=== PATIENT | male | born 1945 | race Caucasian/White ===

== ENCOUNTER 2017-09-22 16:07 | Observation (INO) | payer MEDICARE ==
[2017-09-22 18:21] LABS: Basophils % (A) 0 %; Eosinophils # (A) 0.1 k/uL (0-0.7); Eosinophils % (A) 1 %; HCT 43.4 % (39.0-53.0); HGB 14.6 gm/dL (13.0-17.5); Lymphocytes # (A) 1.1 k/uL (1.0-4.8); Lymphocytes % (A) 9 %; MCH 28.7 pg (25.0-35.0); MCHC 33.7 g/dL (31.0-37.0); MCV 85.2 fL (80.0-100.0); Mean Platelet Volume 6.3; Monocytes # (A) 0.6 k/uL (0-1.0); Monocytes % (A) 5 %; Neutrophils # (A) 10.9 k/uL (1.3-7.7); Neutrophils % (A) 85 %; Platelet Count 250 k/uL (150-450); RDW 12.9 % (11.5-15.5); WBC 12.7 k/uL (3.8-10.6)
[2017-09-22 18:29] LABS: ALT 36 U/L (21-72); AST 32 U/L (17-59); Albumin 4.8 g/dL (3.5-5.0); Alkaline Phosphatase 103 U/L (38-126); Amylase 69 U/L (30-110); Anion Gap 12 mmol/L; Blood Urea Nitrogen 17 mg/dL (9-20); Calcium 9.6 mg/dL (8.4-10.2); Carbon Dioxide 24 mmol/L (22-30); Chloride 104 mmol/L (98-107); Glucose 116 mg/dL (74-99); Lipase 30 U/L (23-300); Sodium 140 mmol/L (137-145); Total Bilirubin 1.6 mg/dL (0.2-1.3); Total Protein 7.8 g/dL (6.3-8.2)
[2017-09-22 18:32] LABS: Appearance,Urine Clear (Clear); Bilirubin,Urine Negative (Negative); Blood,Urine Negative (Negative); Color,Urine Light Yellow; Glucose,Urine (UA) Negative (Negative); Ketones,Urine Negative (Negative); Leukocyte Esterase,Urine Negative (Negative); Nitrite,Urine Negative (Negative); Protein,Urine Trace (Negative); Urobilinogen,Urine <2.0 mg/dL (<2.0)
--- NOTE | 2017-09-22 18:50 | XR ---
EXAMINATION TYPE: XR KUB DATE OF EXAM: 09/22/2017 COMPARISON: NONE HISTORY: Abdominal pain TECHNIQUE: 2 views FINDINGS: There is no sign of intestinal obstruction or pneumoperitoneum. Fecal pattern is normal. Th ere are no pathologic calcifications over the kidneys. Lung bases are clear. IMPRESSION: Nonacute abdomen.
[2017-09-22] MEDS ORDERED: SODIUM CHLORIDE 0.9% 1,000 ML IV STA ×2 (19:03)
[2017-09-22 19:24] LABS: Partial Thromboplastin Time 22.5 sec (22.0-30.0)
--- NOTE | 2017-09-22 20:27 | CT ---
EXAMINATION TYPE: CT abdomen pelvis w con DATE OF EXAM: 09/22/2017 COMPARISON: None HISTORY: ABDOMINAL PAIN WITH VOMITING CT DLP: 1061.6 mGycm Automated exposure control for dose reduction was used. TECHNIQUE: Helical acquisition of images was performed from the lung bases through the pelvis. CONTRAST: Performed without Oral Contrast and with IV Contrast, patient injected with 100 mL of Isovue 300. FINDINGS: There is subsegmental atelectasis at the posterior lung bases. There is no pleural effusion. Heart si ze is normal. Liver spleen pancreas appear normal. Bile ducts are not dilated. There is no adrenal ma ss. Kidneys show satisfactory contrast opacification. There is no hydronephrosis. There is no ascites . There are sigmoid diverticula. There is no evidence of diverticulitis. There is diverticula also in the descending colon. There is mild wall thickening of the transverse colon. The appendix appears no rmal. There is small umbilical hernia that contains bowel. There is a anterior subluxation of L4 in r elation L5 of 8 mm. There is no compression fracture. Bladder distends smoothly. There is a 3 cm diverticulum on the anterior right side of the urinary prakash dder. There are small calcified gallstones in the dependent gallbladder. IMPRESSION: THERE IS LEFT-SIDED COLONIC DIVERTICULOSIS WITHOUT DIVERTICULITIS. THERE IS WALL THICKENING OF TRANSV ERSE COLON SUGGESTIVE OF A MILD NONSPECIFIC COLITIS. CALCIFIED GALLSTONES. BLADDER DIVERTICULUM. INCARCERATED UMBILICAL HERNIA CONTAINING SMALL BOWEL. NO OBSTRUCTION.
--- NOTE | 2017-09-22 21:15 | ED ---
Abdominal Pain HPI - General Chief Complaint: Abdominal Pain Stated Complaint: blood in stool/abdominal pain Time Seen by Provider: 09/22/17 17:49 Source: patient Mode of arrival: ambulatory Limitations: no limitations - History of Present Illness Initial Comments: This is a 72-year-old male presents with complaints of abdominal pain some nausea and diarrhea which has been bloody last several episodes. He does have a history of diverticulosis. He has lower abdominal pain is crampy and about 5/ 10 severity pain. He thought was secondary to gastroenteritis from food that he had eaten [place] persists. MD Complaint: abdominal pain - Related Data Home Medications Medication Instructions Recorded Confirmed Atorvastatin [Lipitor] 20 mg PO HS 08/30/14 09/22/17 Biotin 5 mg PO DAILY 08/30/14 09/22/17 Mometasone Furoate [Nasonex Nasal 2 spr EA NOSTRIL HS 08/30/14 09/22/17 [place]] Multivitamin [Men's Multi-Vitamin] 1 tab PO DAILY 08/30/14 09/22/17 Olmesartan Medoxomil [Benicar] 40 mg PO DAILY 08/30/14 09/22/17 Ubidecarenone [Co Q-10] 100 mg PO DAILY 08/30/14 09/22/17 Vitamin B Complex 1 cap PO DAILY 08/30/14 09/22/17 amLODIPine [Norvasc] 10 mg PO DAILY 08/30/14 09/22/17 Aspirin 81 mg PO DAILY 02/07/15 09/22/17 Acetaminophen [Tylenol 8 Hour] 650 mg PO BID 09/22/17 09/22/17 Cetirizine HCl [Zyrtec] 10 mg PO DAILY 09/22/17 09/22/17 Glucosamine/Chondr Rios A Sod [Osteo 1 tab PO BID 09/22/17 09/22/17 Bi-Flex Caplet] Magnesium Oxide [Mag-Ox] 250 mg PO DAILY 09/22/17 09/22/17 Allergies Allergy/AdvReac Type Severity Reaction Status Date / Time loratadine [From Claritin] Allergy Unknown Verified 09/22/17 19:02 Review of Systems ROS Statement: Those systems with pertinent positive or pertinent negative responses have been documented in the HPI. ROS Other: All systems not noted in ROS Statement are negative. Past Medical History Past Medical History: Hyperlipidemia, Hypertension, Prostate Disorder Additional Past Medical History / Comment(s): prostate CA History of Any Multi-Drug Resistant Organisms: None Reported Additional Past Surgical History / Comment(s): sleep anpea sx, bunionectomy, cataract sx, suprapubic cath, pelvic, sling, penial urinary control system Past Psychological History: No Psychological Hx Reported Smoking Status: Never smoker Past Alcohol Use History: Rare Past Drug Use History: None Reported General Exam - General Exam Comments Initial Comments: This is a well-developed well-nourished awake alert oriented 3 male Limitations: no limitations General appearance: alert, in no apparent distress Head exam: Present: atraumatic, normocephalic, normal inspection Eye exam: Present: normal appearance, PERRL, EOMI. Absent: scleral icterus, conjunctival injection, periorbital swelling ENT exam: Present: mucous membranes dry Neck exam: Present: normal inspection. Absent: tenderness, meningismus, lymphadenopathy Respiratory exam: Present: normal lung sounds bilaterally. Absent: respiratory distress, wheezes, rales, rhonchi, stridor Cardiovascular Exam: Present: regular rate, normal rhythm, normal heart sounds. Absent: systolic murmur, diastolic murmur, rubs, gallop, clicks GI/Abdominal exam: Present: soft, tenderness (Tenderness over the suprapubic and lower), normal bowel sounds. Absent: distended, guarding, rebound, rigid Rectal exam: Present: deferred Extremities exam: Present: normal inspection, full ROM, normal capillary refill. Absent: tenderness, pedal edema, joint swelling, calf tenderness Back exam: Present: normal inspection Neurological exam: Present: alert, oriented X3, CN II-XII intact Psychiatric exam: Present: normal affect, normal mood Skin exam: Present: warm, dry, intact, normal color. Absent: rash Course Vital Signs 09/22/17 09/22/17 17:18 19:19 Temperature 98.5 F 99.7 F H Pulse Rate 85 81 Respiratory 18 18 Rate Blood Pressure 140/84 133/74 O2 Sat by Pulse 98 95 Oximetry Medical Decision Making - Medical Decision Making X-rays are nonspecific. I did review the CAT scan report shows no evidence of colitis nonspecific evidence of diverticulosis without diverticulitis. - Lab Data Result diagrams: 09/22/17 18:00 09/22/17 18:00 Lab Results 09/22/17 09/22/17 09/22/17 Range/Units 18:00 18:00 18:00 WBC 12.7 H (3.8-10.6) k/uL RBC 5.10 (4.30-5.90) m/uL Hgb 14.6 (13.0-17.5) gm/dL Hct 43.4 (39.0-53.0) % MCV 85.2 (80.0-100.0) fL MCH 28.7 (25.0-35.0) pg MCHC 33.7 (31.0-37.0) g/dL RDW 12.9 (11.5-15.5) % Plt Count 250 (150-450) k/uL Neutrophils % 85 % Lymphocytes % 9 % Monocytes % 5 % Eosinophils % 1 % Basophils % 0 % Neutrophils # 10.9 H (1.3-7.7) k/uL Lymphocytes # 1.1 (1.0-4.8) k/uL Monocytes # 0.6 (0-1.0) k/uL Eosinophils # 0.1 (0-0.7) k/uL Basophils # 0.0 (0-0.2) k/uL PT (9.0-12.0) sec INR (<1.2) APTT (22.0-30.0) sec Sodium 140 (137-145) mmol/L Potassium 4.0 (3.5-5.1) mmol/L Chloride 104 (98-107) mmol/L Carbon Dioxide 24 (22-30) mmol/L Anion Gap 12 mmol/L BUN 17 (9-20) mg/dL Creatinine 0.80 (0.66-1.25) mg/dL Est GFR (CKD-EPI)AfAm >90 (>60 ml/min/1.73 sqM) Est GFR (CKD-EPI)NonAf >90 (>60 ml/min/1.73 sqM) Glucose 116 H (74-99) mg/dL Plasma Lactic Acid Daniel 2.2 H* (0.7-2.0) mmol/L Calcium 9.6 (8.4-10.2) mg/dL Total Bilirubin 1.6 H (0.2-1.3) mg/dL AST 32 (17-59) U/L ALT 36 (21-72) U/L Alkaline Phosphatase 103 (38-126) U/L Total Protein 7.8 (6.3-8.2) g/dL Albumin 4.8 (3.5-5.0) g/dL Amylase 69 (30-110) U/L Lipase 30 (23-300) U/L Urine Color Urine Appearance (Clear) Urine pH (5.0-8.0) Ur Specific Bard (1.001-1.035) Urine Protein (Negative) Urine Glucose (UA) (Negative) Urine Ketones (Negative) Urine Blood (Negative) Urine Nitrite (Negative) Urine Bilirubin (Negative) Urine Urobilinogen (<2.0) mg/dL Ur Leukocyte Esterase (Negative) Blood Type Blood Type Confirm Blood Type Recheck Antibody Screen Spec Expiration Date 09/22/17 09/22/17 09/22/17 Range/Units 18:00 18:00 18:00 WBC (3.8-10.6) k/uL RBC (4.30-5.90) m/uL Hgb (13.0-17.5) gm/dL Hct (39.0-53.0) % MCV (80.0-100.0) fL MCH (25.0-35.0) pg MCHC (31.0-37.0) g/dL RDW (11.5-15.5) % Plt Count (150-450) k/uL Neutrophils % % Lymphocytes % % Monocytes % % Eosinophils % % Basophils % % Neutrophils # (1.3-7.7) k/uL Lymphocytes # (1.0-4.8) k/uL Monocytes # (0-1.0) k/uL Eosinophils # (0-0.7) k/uL Basophils # (0-0.2) k/uL PT 10.0 (9.0-12.0) sec INR 1.0 (<1.2) APTT 22.5 (22.0-30.0) sec Sodium (137-145) mmol/L Potassium (3.5-5.1) mmol/L Chloride (98-107) mmol/L Carbon Dioxide (22-30) mmol/L Anion Gap mmol/L BUN (9-20) mg/dL Creatinine (0.66-1.25) mg/dL Est GFR (CKD-EPI)AfAm (>60 ml/min/1.73 sqM) Est GFR (CKD-EPI)NonAf (>60 ml/min/1.73 sqM) Glucose (74-99) mg/dL Plasma Lactic Acid Daniel (0.7-2.0) mmol/L Calcium (8.4-10.2) mg/dL Total Bilirubin (0.2-1.3) mg/dL AST (17-59) U/L ALT (21-72) U/L Alkaline Phosphatase (38-126) U/L Total Protein (6.3-8.2) g/dL Albumin (3.5-5.0) g/dL Amylase (30-110) U/L Lipase (23-300) U/L Urine Color Light Yellow Urine Appearance Clear (Clear) Urine pH 5.0 (5.0-8.0) Ur Specific Bard 1.010 (1.001-1.035) Urine Protein Trace H (Negative) Urine Glucose (UA) Negative (Negative) Urine Ketones Negative (Negative) Urine Blood Negative (Negative) Urine Nitrite Negative (Negative) Urine Bilirubin Negative (Negative) Urine Urobilinogen <2.0 (<2.0) mg/dL Ur Leukocyte Esterase Negative (Negative) Blood Type O Positive Blood Type Confirm Blood Type Recheck CABO Indicated Antibody Screen NEGATIVE Spec Expiration Date 09/25/2017 - 229909/22/17 Range/Units 19:00 WBC (3.8-10.6) k/uL RBC (4.30-5.90) m/uL Hgb (13.0-17.5) gm/dL Hct (39.0-53.0) % MCV (80.0-100.0) fL MCH (25.0-35.0) pg MCHC (31.0-37.0) g/dL RDW (11.5-15.5) % Plt Count (150-450) k/uL Neutrophils % % Lymphocytes % % Monocytes % % Eosinophils % % Basophils % % Neutrophils # (1.3-7.7) k/uL Lymphocytes # (1.0-4.8) k/uL Monocytes # (0-1.0) k/uL Eosinophils # (0-0.7) k/uL Basophils # (0-0.2) k/uL PT (9.0-12.0) sec INR (<1.2) APTT (22.0-30.0) sec Sodium (137-145) mmol/L Potassium (3.5-5.1) mmol/L Chloride (98-107) mmol/L Carbon Dioxide (22-30) mmol/L Anion Gap mmol/L BUN (9-20) mg/dL Creatinine (0.66-1.25) mg/dL Est GFR (CKD-EPI)AfAm (>60 ml/min/1.73 sqM) Est GFR (CKD-EPI)NonAf (>60 ml/min/1.73 sqM) Glucose (74-99) mg/dL Plasma Lactic Acid Daniel (0.7-2.0) mmol/L Calcium (8.4-10.2) mg/dL Total Bilirubin (0.2-1.3) mg/dL AST (17-59) U/L ALT (21-72) U/L Alkaline Phosphatase (38-126) U/L Total Protein (6.3-8.2) g/dL Albumin (3.5-5.0) g/dL Amylase (30-110) U/L Lipase (23-300) U/L Urine Color Urine Appearance (Clear) Urine pH (5.0-8.0) Ur Specific [place] (1.001-1.035) Urine Protein (Negative) Urine Glucose (UA) (Negative) Urine Ketones (Negative) Urine Blood (Negative) Urine Nitrite (Negative) Urine Bilirubin (Negative) Urine Urobilinogen (<2.0) mg/dL Ur Leukocyte Esterase (Negative) Blood Type Blood Type Confirm O Positive Blood Type Recheck Antibody Screen Spec Expiration Date Disposition Clinical Impression: Acute colitis, Hematochezia Disposition: ADMITTED IP TO THIS [facility] Condition: Stable Referrals: Jigna Dawn MD [Primary Care Provider] - 1-2 days
[2017-09-22] MEDS ORDERED: ONDANSETRON 4 MG/2 ML VIAL IVP PRN (21:19)
[2017-09-22] MEDS ORDERED: PIPERACILLIN-TAZOBACTAM 3.375 GM in DEXTROSE/WATER 1 50ML.BAG IVPB STA (21:19)
[2017-09-22] MEDS ORDERED: HYDROmorphone 1 MG/ML 1 ML SYRINGE IVP PRN (21:19)
[2017-09-22] MEDS ORDERED: NALOXONE 0.4 MG/ML 1 ML VIAL IV PRN (21:19)
[2017-09-22 23:00] LABS: Basophils % (A) 0 %; Eosinophils # (A) 0.1 k/uL (0-0.7); Eosinophils % (A) 1 %; HCT 39.8 % (39.0-53.0); HGB 13.4 gm/dL (13.0-17.5); Lymphocytes # (A) 1.4 k/uL (1.0-4.8); Lymphocytes % (A) 15 %; MCH 28.5 pg (25.0-35.0); MCHC 33.8 g/dL (31.0-37.0); MCV 84.5 fL (80.0-100.0); Mean Platelet Volume 6.6; Monocytes # (A) 0.6 k/uL (0-1.0); Monocytes % (A) 6 %; Neutrophils # (A) 6.9 k/uL (1.3-7.7); Neutrophils % (A) 77 %; Platelet Count 228 k/uL (150-450); RBC 4.71 m/uL (4.30-5.90); RDW 12.9 % (11.5-15.5)
[2017-09-22 23:15] VITALS: BMI 28.0
[2017-09-23] MEDS ORDERED: TEMAZEPAM 15 MG CAP PO PRN (00:28)
[2017-09-23] MEDS ORDERED: ALPRAZolam 0.25 MG TAB PO PRN (00:28)
[2017-09-23] MEDS ORDERED: HYDROcodone/APAP 5-325MG 1 EACH TAB PO PRN (00:28)
[2017-09-23 00:52] LABS: Basophils % (A) 0 %; Eosinophils # (A) 0.1 k/uL (0-0.7); Eosinophils % (A) 1 %; HGB 13.4 gm/dL (13.0-17.5); Lymphocytes # (A) 1.2 k/uL (1.0-4.8); Lymphocytes % (A) 13 %; MCHC 34.4 g/dL (31.0-37.0); MCV 84.4 fL (80.0-100.0); Monocytes # (A) 0.6 k/uL (0-1.0); Monocytes % (A) 7 %; Neutrophils # (A) 7.1 k/uL (1.3-7.7); Neutrophils % (A) 79 %; Platelet Count 218 k/uL (150-450); RBC 4.62 m/uL (4.30-5.90); RDW 12.9 % (11.5-15.5)
[2017-09-23] MEDS: SODIUM CHLORIDE 0.9% 1,000 ML IV SCH ×2 (02:34→15:25)
--- NOTE | 2017-09-23 05:38 | HP ---
HISTORY AND PHYSICAL DATE OF SERVICE: 09/22/2017 CHIEF COMPLAINT: GI bleed. HISTORY OF PRESENT ILLNESS: This 72-year-old gentleman with a past medical history of hypertension, hyperlipidemia, and history of prostate cancer, being followed by Dr. Dawn in the outpatient setting who apparently had a sandwich from [email or web address] restaurant two days ago, patient subsequently had abdominal cramping and subsequently patient noted bleeding per rectum since yesterday. The patient multiple episodes of abdominal cramping and bleeding per rectum. Patient came to [facility] and admitted for evaluation and treatment. Hemoglobin was found to be 13.6, but however the CAT scan showed evidence of thickening of the transverse colon. Patient admitted for further evaluation and treatment. Apparently the patient's and couple family members also was getting GI symptoms after eating the same sandwich. There is no history of any fever or rigors. There is no history of headache, loss of consciousness, or seizures. PAST MEDICAL HISTORY: Hypertension, hyperlipidemia, history of prostate disorder, prostate cancer. MEDICATIONS: Medications prior to admission include home medications are: 1. Norvasc 10 mg p.o. daily. 2. Vitamin B complex 1 p.o. daily. 3. Coenzyme Q 100 mg p.o. daily. 4. Benicar 40 mg daily. 5. Multivitamins p.o. daily. 6. Nasonex 2 sprays at bedtime. 7. Magnesium oxide 250 mg p.o. daily. 8. Osteo Bi-Flex 1 tablet p.o. b.i.d. 9. Zyrtec 10 mg p.o. daily. 10.Biotin 5 mg p.o. daily. 11.Lipitor 20 mg at bedtime. 12.Aspirin 81 mg daily. 13.Tylenol 650 mg b.i.d. ALLERGIES: Allergies are LORATADINE. FAMILY HISTORY: No history of heart disease or strokes in the family. SOCIAL HISTORY: No history of smoking. Occasional alcohol intake. REVIEW OF SYSTEMS: ENT: No diminished hearing or diminished vision. CARDIOVASCULAR SYSTEM: No angina. RESPIRATORY SYSTEM: No cough or hemoptysis. GI: As mentioned earlier. : No dysuria. NERVOUS SYSTEM: No numbness or weakness. ALLERGY/IMMUNOLOGY: No asthma or hayfever. MUSCULOSKELETAL: As mentioned earlier. HEMATOLOGY/ONCOLOGY: No history of anemia. ENDOCRINE: No history of diabetes or hypothyroidism. CONSTITUTIONAL: As mentioned earlier. DERMATOLOGY: Negative. RHEUMATOLOGY: Negative. PSYCHIATRY: As mentioned earlier. PHYSICAL EXAMINATION: The patient is alert and oriented x3. The pulse is 84, blood pressure 148/68, respirations 17, temperature 98.5, pulse ox 98% on room air. HEENT: Conjunctivae normal. Oral mucosa moist. Neck is no jugular venous distention. No carotid bruit. No lymph node enlargement. CARDIOVASCULAR: S1 and S2 muffled. No S3, no S4. RESPIRATORY: Breath sounds are diminished at the bases. No rhonchi, no crackles. ABDOMEN: Soft. Mild diffuse discomfort on palpation otherwise no guarding, no rigidity. No mass palpable. LEGS: No edema, no swelling. NERVOUS SYSTEM: Higher functions as mentioned earlier. Moves all 4 limbs. No focal motor or sensory deficits LYMPHATICS: No lymphadenopathy of the neck, axillae or groin. SKIN: No ulcer, rash or bleeding. LAB STUDIES: WBC 12.7, hemoglobin 14.6. Lactic acid 2.2. ASSESSMENT: 1. Acute colitis, possibly infectious in nature. 2. Acute lower gastrointestinal bleed. 3. Increased WBC. 4. Hypertension. 5. Hyperlipidemia. 6. Prostate cancer. 7. History of sleep apnea. RECOMMENDATIONS AND DISCUSSION: In this 72-year-old gentleman who presented with multiple complex medical issues, will monitor the patient closely. Continue the current medications, continue symptomatic treatment. I would recommend broad-spectrum IV antibiotics. Follow the cultures. Surgical evaluation. Stool for C difficile, ova, parasite culture. Otherwise prognosis guarded because of the multiple complex medical issues and further recommendations to follow. See orders for details. MMODL / IJN: [id number] /
[2017-09-23] MEDS: metroNIDAZOLE-NS PMX 500 MG in SALINE 1 100ML.BAG IVPB SCH ×3 (07:20→23:49)
[2017-09-23] MEDS ORDERED: PIPERACILLIN-TAZOBACTAM 3.375 GM in DEXTROSE/WATER 1 50ML.BAG IVPB SCH (08:00)
[2017-09-23] MEDS: PANTOPRAZOLE 40 MG/10 ML VIAL IVP SCH ×2 (08:31→20:55)
[2017-09-23] MEDS: ACETAMINOPHEN TAB 325 MG TAB PO SCH ×2 (08:32→20:56)
[2017-09-23] MEDS: LEVOFLOXACIN 500MG-D5W PMX 500 MG in DEXTROSE/WATER 1 100ML.BAG IVPB SCH (08:32)
[2017-09-23] MEDS: amLODIPine 10 MG TAB PO SCH (08:33)
[2017-09-23] MEDS: LOSARTAN 50 MG TAB PO SCH (08:33)
[2017-09-23] MEDS ORDERED: PANTOPRAZOLE 40 MG/10 ML VIAL IV SCH (09:00)
[2017-09-23 09:30] LABS: Basophils % (A) 0 %; Eosinophils # (A) 0.1 k/uL (0-0.7); Eosinophils % (A) 1 %; HCT 39.2 % (39.0-53.0); HGB 13.1 gm/dL (13.0-17.5); Lymphocytes # (A) 1.1 k/uL (1.0-4.8); Lymphocytes % (A) 15 %; MCH 28.5 pg (25.0-35.0); MCHC 33.4 g/dL (31.0-37.0); MCV 85.4 fL (80.0-100.0); Mean Platelet Volume 6.8; Monocytes # (A) 0.6 k/uL (0-1.0); Monocytes % (A) 7 %; Neutrophils # (A) 5.8 k/uL (1.3-7.7); Neutrophils % (A) 76 %; Platelet Count 215 k/uL (150-450); RBC 4.59 m/uL (4.30-5.90); RDW 13.1 % (11.5-15.5); WBC 7.7 k/uL (3.8-10.6)
[2017-09-23 11:34] LABS: Hepatitis A Antibody IgM Non-Reactive (Non-Reactive); Hepatitis B Core IgM Non-Reactive (Non-Reactive)
[2017-09-23 13:58] LABS: Basophils % (A) 0 %; Eosinophils # (A) 0.1 k/uL (0-0.7); Eosinophils % (A) 1 %; HCT 37.9 % (39.0-53.0); HGB 12.7 gm/dL (13.0-17.5); Lymphocytes # (A) 1.2 k/uL (1.0-4.8); Lymphocytes % (A) 16 %; MCH 29.1 pg (25.0-35.0); MCHC 33.6 g/dL (31.0-37.0); MCV 86.7 fL (80.0-100.0); Mean Platelet Volume 6.2; Monocytes # (A) 0.5 k/uL (0-1.0); Monocytes % (A) 6 %; Neutrophils # (A) 5.8 k/uL (1.3-7.7); Neutrophils % (A) 76 %; Platelet Count 208 k/uL (150-450); RBC 4.36 m/uL (4.30-5.90); RDW 13.2 % (11.5-15.5); WBC 7.7 k/uL (3.8-10.6)
[2017-09-23 19:55] LABS: Basophils % (A) 0 %; Eosinophils # (A) 0.1 k/uL (0-0.7); Eosinophils % (A) 2 %; HCT 39.1 % (39.0-53.0); Lymphocytes # (A) 1.6 k/uL (1.0-4.8); Lymphocytes % (A) 19 %; MCH 28.5 pg (25.0-35.0); MCHC 33.2 g/dL (31.0-37.0); MCV 85.8 fL (80.0-100.0); Mean Platelet Volume 6.3; Monocytes # (A) 0.6 k/uL (0-1.0); Monocytes % (A) 7 %; Neutrophils # (A) 5.9 k/uL (1.3-7.7); Neutrophils % (A) 71 %; Platelet Count 220 k/uL (150-450); RBC 4.56 m/uL (4.30-5.90); RDW 13.2 % (11.5-15.5); WBC 8.3 k/uL (3.8-10.6)
[2017-09-23] MEDS ORDERED: FLUTICASONE 50MCG/SPRAY NASAL 16GM EA NOSTRIL SCH (21:00)
[2017-09-23] MEDS ORDERED: ATORVASTATIN 20 MG TAB PO SCH (21:00)
--- NOTE | 2017-09-23 21:04 | P.GSCN ---
History of Present Illness Consult date: 09/23/17 History of present illness: Patient states he was recently eating at [employer] when he began having abdominal pain, diarrhea and bloody diarrhea later that night. Everyone who at at the restaurant experianced abdominal cramping and pain that night. He has never had this before, he denies fevers, he denies and history of cardiovascular disease. He takes HTN meds but denies any symptoms of hypotension. His last colonoscopy was 3-5 years ago and had a polyp that was removed along with diverticulosis. Today he has been feeling better, denies any blood in his BM and has had no diarrhea since admission. Past Medical History Past Medical History: Hyperlipidemia, Hypertension, Prostate Disorder Additional Past Medical History / Comment(s): prostate CA History of Any Multi-Drug Resistant Organisms: None Reported Additional Past Surgical History / Comment(s): sleep anpea sx, bunionectomy, cataract sx, suprapubic cath, pelvic, sling, penial urinary control system, prostate removed 2015 Past Psychological History: No Psychological Hx Reported Smoking Status: Never smoker Past Alcohol Use History: Rare Past Drug Use History: None Reported Medications and Allergies Home Medications Medication Instructions Recorded Confirmed Type Atorvastatin [Lipitor] 20 mg PO HS 08/30/14 09/22/17 History Biotin 5 mg PO DAILY 08/30/14 09/22/17 History Mometasone Furoate [Nasonex Nasal 2 spr EA NOSTRIL HS 08/30/14 09/22/17 History [place]] Multivitamin [Men's Multi-Vitamin] 1 tab PO DAILY 08/30/14 09/22/17 History Olmesartan Medoxomil [Benicar] 40 mg PO DAILY 08/30/14 09/22/17 History Ubidecarenone [Co Q-10] 100 mg PO DAILY 08/30/14 09/22/17 History Vitamin B Complex 1 cap PO DAILY 08/30/14 09/22/17 History amLODIPine [Norvasc] 10 mg PO DAILY 08/30/14 09/22/17 History Aspirin 81 mg PO DAILY 02/07/15 09/22/17 History Acetaminophen [Tylenol 8 Hour] 650 mg PO BID 09/22/17 09/22/17 History Cetirizine HCl [Zyrtec] 10 mg PO DAILY 09/22/17 09/22/17 History Glucosamine/Chondr Rios A Sod [Osteo 1 tab PO BID 09/22/17 09/22/17 History Bi-Flex Caplet] Magnesium Oxide [Mag-Ox] 250 mg PO DAILY 09/22/17 09/22/17 History Allergies Allergy/AdvReac Type Severity Reaction Status Date / Time loratadine [From Claritin] Allergy Unknown Verified 09/22/17 19:02 Surgical - Exam Osteopathic Statement: *. No significant issues noted on an osteopathic structural exam other than those noted in the History and Physical/Consult. Vital Signs Temp Pulse Resp BP Pulse Ox 98.5 F 85 18 140/84 98 09/22/17 17:18 09/22/17 17:18 09/22/17 17:18 09/22/17 17:18 09/22/17 17:18 - General well developed, well nourished, no distress - Eyes PERRL - Neck trachea midline - Respiratory normal expansion, normal respiratory effort - Cardiovascular Rhythm: regular - Abdomen Abdomen: soft, non tender - Neurologic normal coordination, normal sensation - Musculoskeletal normal gait - Psychiatric oriented to time, oriented to person, oriented to place Results - Labs 09/23/17 19:28 09/22/17 18:00 Abnormal Lab Results - Last 24 Hours (Table) 09/23/17 Range/Units 13:33 Hgb 12.7 L (13.0-17.5) gm/dL Hct 37.9 L (39.0-53.0) % Microbiology - Last 24 Hours (Table) 09/23/17 12:05 Stool Culture - Preliminary Stool - Imaging CT scan - abdomen: report reviewed, image reviewed Assessment and Plan Assessment: Colitis with lower GI bleed Plan: Likely secondary to infectious source, follow up stool cultures. Possible secondary to ischemia but less likely. Patient can follow up as an outpatient for a colonoscopy. No plans for acute surgical intervention at this time. Hydrate and Cont diet as tolerated
--- NOTE | 2017-09-23 21:14 | P.PN ---
Subjective Progress Note Date: 09/23/17 Progress note being dictated for Dr. Hawthorne. Interval history: This a 72-year-old gentleman admitted with acute colitis, possible infectious, acute lower GI bleed, leukocytosis and multiple other medical issues. Maintained on gentle IV fluid hydration, broad-spectrum IV antibiotics. Afebrile, maintaining O2 sats in the high 90s on room air. Stool for occult blood positive, C. difficile colitis ruled out, hepatitis panel nonreactive. Preliminary stool cultures pending for ova/parasite. Hemoglobin 13. Reports multiple episodes bright red rectal bleeding with bowel movements last night and today. Complains of bilateral lower quadrant pain. Denies chest pain, palpitations or increasing shortness of breath. GI and surgery consult in place with recommendations pending. Objective - Vital Signs Vital signs: Vital Signs Temp 97.3 F L 09/23/17 14:31 Pulse 72 09/23/17 14:31 Resp 18 09/23/17 16:00 BP 125/71 09/23/17 14:31 Pulse Ox 97 09/23/17 14:31 Intake & Output 09/23/17 09/23/17 09/24/17 06:59 18:59 06:59 Intake Total 600 Output Total 300 Balance -300 600 Weight 94 kg Intake: Oral 600 Output: Stool 300 Other: Voiding Method Toilet # Voids 1 # Bowel Movements 2 - Exam PHYSICAL EXAM: VITAL SIGNS: As above GENERAL: Sitting up in bed, no acute distress HEENT: Conjunctivae normal. eyes normal. Oral Mucosa dry NECK: No JVD. No thyroid enlargement. No LNs CARDIOVASCULAR: S1, S2 muffled. No murmur RESPIRATION: Breath sounds diminished in the bases. No rhonchi or crackles. No bronchial breathing. ABDOMEN: Soft, mildly distended, mild diffuse tenderness. . No guarding. no masses palpable.Bowel sounds heard. LEGS: No edema. no swelling PSYCHIATRY: Alert and oriented -3, mood and affect normal. NERVOUS SYSTEM: Cranial N 2-12 grossly normal. Moves all 4 limbs. Diffuse weakness No focal deficits. Skin: no ulcer no rash Lymphatic system. No LN neck axilla or groin. - Labs CBC & Chem 7: 09/23/17 19:28 09/22/17 18:00 Labs: Abnormal Lab Results - Last 24 Hours (Table) 09/23/17 Range/Units 13:33 Hgb 12.7 L (13.0-17.5) gm/dL Hct 37.9 L (39.0-53.0) % Microbiology - Last 24 Hours (Table) 09/23/17 12:05 Stool Culture - Preliminary Stool Assessment and Plan Assessment: 1. Acute colitis, possibly infectious in nature 2. Acute lower GI bleed 3. Leukocytosis 4. Hypertension 5. Hyperlipidemia 6. History of prostate cancer Plan: Continue on current medication regime ,monitoring and symptomatic treatment. Maintain gentle IV fluid hydration, PPI, IV antibiotics. Surgical evaluation pending, possible endoscopy. Diet advancement as per surgery Close monitoring of hemoglobin with repeat labs ordered for a.m. Further recommendations to follow. The impression and plan of care has been dictated as directed. : I performed a history and examination of this patient, discussed the same with the dictator. I agree with the dictator's note ,documented as a scribe. Any additional findings or plans will be noted.
[2017-09-23 23:20] VITALS: PULSE 65; RESP 16
--- NOTE | 2017-09-24 01:12 | P.CONS ---
History of Present Illness - Reason for Consult Consult date: 09/23/17 Hematochezia, colitis Requesting physician: Kaylee Vickers - Chief Complaint Bright red blood per rectum - History of Present Illness The patient is a very pleasant 72-year-old male with a past history of hypertension, hyperlipidemia and prior polypectomy on cold endoscopy ( approximately 3-5 years ago) who presented for evaluation of diarrhea and bright red blood per rectum. The patient reports that this past weekend he took his and grandchildren to eat at a fast food restaurant. He reports that within hours of eating they're both his and grandchildren developed diarrhea. He too developed multiple episodes of loose stool starting later in the night. He reports that the episodes continued throughout the night and were more than he could count. He reports that eventually he was passing bright red blood per rectum. She reports associated lower abdominal pain with the bleeding. She describes it as crampy in nature. He denies any previous episodes, recent medication changes, sick contacts or travel. On presentation to the hospital the patient was found to have leukocytosis and had CT evaluation of his abdomen which showed transverse wall thickening and diverticulosis. The patient's hemoglobin was normal on presentation at 14.6 which has remained stable at over 12. Testing for Clostridium difficile has been negative. Currently he reports resolution of the abdominal pain and has been able to tolerate a diet. He had his last bloody bowel movement this morning and has since had no further bleeding per rectum. Review of Systems Constitutional: Reports chronic pain Eyes: denies itching, denies pain, denies loss of vision Ears: deny: tinnitus Ears, nose, mouth and throat: Denies dysphagia, Denies epistaxis Cardiovascular: Reports high blood pressure, Denies irregular heart beat, Denies orthopnea, Denies palpitations Respiratory: Denies cough, Denies excessive sputum, Denies hemoptysis, Denies wheezing Gastrointestinal: Reports abdominal pain, Reports BRBPR, Reports diarrhea, Reports hematochezia, Denies coffee ground emesis, Denies hematemesis Integumentary: Denies pruritus, Denies rash, Denies sores Neurological: Denies confusion, Denies convulsions, Denies double vision Past Medical History Past Medical History: Hyperlipidemia, Hypertension, Prostate Disorder Additional Past Medical History / Comment(s): prostate CA History of Any Multi-Drug Resistant Organisms: None Reported Additional Past Surgical History / Comment(s): sleep anpea sx, bunionectomy, cataract sx, suprapubic cath, pelvic, sling, penial urinary control system, prostate removed 2015 Past Psychological History: No Psychological Hx Reported Smoking Status: Never smoker Past Alcohol Use History: Rare Past Drug Use History: None Reported Medications and Allergies Home Medications Medication Instructions Recorded Confirmed Type Atorvastatin [Lipitor] 20 mg PO HS 08/30/14 09/22/17 History Biotin 5 mg PO DAILY 08/30/14 09/22/17 History Mometasone Furoate [Nasonex Nasal 2 spr EA NOSTRIL HS 08/30/14 09/22/17 History [place]] Multivitamin [Men's Multi-Vitamin] 1 tab PO DAILY 08/30/14 09/22/17 History Olmesartan Medoxomil [Benicar] 40 mg PO DAILY 08/30/14 09/22/17 History Ubidecarenone [Co Q-10] 100 mg PO DAILY 08/30/14 09/22/17 History Vitamin B Complex 1 cap PO DAILY 08/30/14 09/22/17 History amLODIPine [Norvasc] 10 mg PO DAILY 08/30/14 09/22/17 History Aspirin 81 mg PO DAILY 02/07/15 09/22/17 History Acetaminophen [Tylenol 8 Hour] 650 mg PO BID 09/22/17 09/22/17 History Cetirizine HCl [Zyrtec] 10 mg PO DAILY 09/22/17 09/22/17 History Glucosamine/Chondr Rios A Sod [Osteo 1 tab PO BID 09/22/17 09/22/17 History Bi-Flex Caplet] Magnesium Oxide [Mag-Ox] 250 mg PO DAILY 09/22/17 09/22/17 History Allergies Allergy/AdvReac Type Severity Reaction Status Date / Time loratadine [From Claritin] Allergy Unknown Verified 09/22/17 19:02 Physical Exam Vitals: Vital Signs Temp Pulse Pulse Resp BP BP Pulse Ox 09/23/17 23:00 98.1 F 65 16 105/56 93 L 09/23/17 16:00 18 09/23/17 14:31 97.3 F L 72 18 125/71 97 09/23/17 05:40 98.0 F 72 16 118/66 96 09/23/17 01:00 88 113/59 Intake and Output 09/23/17 09/23/17 09/24/17 14:59 22:59 06:59 Intake Total 600 Balance 600 Intake: Oral 600 Other: Voiding Method Toilet Toilet # Voids 1 1 # Bowel Movements 2 - Constitutional General appearance: average body habitus, cooperative, no acute distress - EENT Eyes: no poor dentition, no scleral icterus - Respiratory Respiratory: bilateral: CTA, negative: rales, rhonchi, wheezing - Cardiovascular Rhythm: regular Heart sounds: normal: S1, S2 - Gastrointestinal General gastrointestinal: no distended, normal bowel sounds, soft, no tenderness - Integumentary Integumentary: no jaundiced, no pale, no rash - Psychiatric Psychiatric: A&O x's 3, appropriate affect Results CBC & Chem 7: 09/23/17 19:28 09/22/17 18:00 Labs: Abnormal Lab Results - Last 24 Hours (Table) 09/23/17 Range/Units 13:33 Hgb 12.7 L (13.0-17.5) gm/dL Hct 37.9 L (39.0-53.0) % Microbiology - Last 24 Hours (Table) 09/22/17 21:54 Blood Culture - Preliminary Blood No Growth after 24 hours 09/23/17 12:05 Stool Culture - Preliminary Stool CT scan - abdomen: report reviewed Assessment and Plan (1) Acute colitis Narrative/Plan: Patient presenting with complaints of both diarrhea followed by multiple episodes of hematochezia likely related to a food borne gastroenteritis. Computed tomography scan was consistent with transverse colon colitis related to this presentation. Less likely on the differential is ischemia given the area of inflammation or an autoimmune process given the acuity of the patient's presentation. Currently symptoms are improved. Current Visit: Yes Status: Acute Code(s): K52.9 - NONINFECTIVE GASTROENTERITIS AND COLITIS, UNSPECIFIED SNOMED Code(s): 12686701 (2) History of colonic polyps Narrative/Plan: History of colonic polyps per the patient on last colonoscopy approximately 3-5 years ago. Current Visit: Yes Status: Acute Code(s): Z86.010 - PERSONAL HISTORY OF COLONIC POLYPS SNOMED Code(s): 373100536 (3) Hematochezia Narrative/Plan: Likely related to colitis seen on computed tomography scan and secondary to a bacterial or viral gastroenteritis. Current Visit: Yes Status: Acute Code(s): K92.1 - MELENA SNOMED Code(s): 195772371 Plan: 1. Diet as tolerated 2. Monitor hemoglobin and hematocrit and transfuse as needed 3. Continue antibiotic therapy 4. Patient will need endoscopic evaluation of the colon in 4-6 weeks for evaluation of CT findings and to rule out underlying malignancy 5. Continue to monitor stool output 6. Thank you for allowing us to participate in the care of this patient will continue to follow
[2017-09-24 01:19] LABS: Basophils % (A) 0 %; Eosinophils # (A) 0.1 k/uL (0-0.7); Eosinophils % (A) 2 %; HCT 36.1 % (39.0-53.0); HGB 12.1 gm/dL (13.0-17.5); Lymphocytes # (A) 1.9 k/uL (1.0-4.8); Lymphocytes % (A) 24 %; MCH 28.7 pg (25.0-35.0); MCHC 33.6 g/dL (31.0-37.0); MCV 85.4 fL (80.0-100.0); Mean Platelet Volume 6.7; Monocytes # (A) 0.5 k/uL (0-1.0); Monocytes % (A) 7 %; Neutrophils % (A) 65 %; Platelet Count 191 k/uL (150-450); RBC 4.23 m/uL (4.30-5.90); RDW 13.1 % (11.5-15.5); WBC 7.7 k/uL (3.8-10.6)
[2017-09-24 05:55] VITALS: BP 97/56; TEMP 96.9
[2017-09-24] MEDS: SODIUM CHLORIDE 0.9% 1,000 ML IV SCH (05:56)
[2017-09-24] MEDS: LEVOFLOXACIN 500MG-D5W PMX 500 MG in DEXTROSE/WATER 1 100ML.BAG IVPB SCH (08:08)
[2017-09-24] MEDS: PANTOPRAZOLE 40 MG/10 ML VIAL IVP SCH (08:09)
[2017-09-24] MEDS: LOSARTAN 50 MG TAB PO SCH (08:09)
[2017-09-24] MEDS: amLODIPine 10 MG TAB PO SCH (08:09)
[2017-09-24] MEDS: ACETAMINOPHEN TAB 325 MG TAB PO SCH (08:16)
[2017-09-24 09:03] LABS: Basophils % (A) 0 %; Eosinophils # (A) 0.1 k/uL (0-0.7); Eosinophils % (A) 2 %; HCT 40.9 % (39.0-53.0); HGB 13.2 gm/dL (13.0-17.5); Lymphocytes # (A) 1.5 k/uL (1.0-4.8); Lymphocytes % (A) 24 %; MCHC 32.4 g/dL (31.0-37.0); MCV 86.3 fL (80.0-100.0); Mean Platelet Volume 6.4; Monocytes # (A) 0.4 k/uL (0-1.0); Monocytes % (A) 6 %; Neutrophils # (A) 4.3 k/uL (1.3-7.7); Neutrophils % (A) 66 %; Platelet Count 219 k/uL (150-450); RBC 4.74 m/uL (4.30-5.90); WBC 6.4 k/uL (3.8-10.6)
[2017-09-24 09:19] LABS: Anion Gap 9 mmol/L; Blood Urea Nitrogen 9 mg/dL (9-20); Calcium 9.3 mg/dL (8.4-10.2); Carbon Dioxide 24 mmol/L (22-30); Chloride 109 mmol/L (98-107); Glucose 92 mg/dL (74-99); Potassium 3.9 mmol/L (3.5-5.1); Sodium 142 mmol/L (137-145)
[2017-09-24] MEDS: metroNIDAZOLE-NS PMX 500 MG in SALINE 1 100ML.BAG IVPB SCH (09:58)
[2017-09-24] MEDS ORDERED: Potassium Replacement Protocol 1 EACH MISC MISCELLANE PRN (11:39)
[2017-09-24] MEDS ORDERED: Magnesium Replacement Protocol 1 EACH MISC MISCELLANE PRN (11:39)
--- NOTE | 2017-09-24 13:40 | P.PN ---
Subjective Progress Note Date: 09/24/17 Doing well no complaints. no bloody BM, no pain Objective - Vital Signs Vital signs: Vital Signs Temp 96.9 F L 09/24/17 05:54 Pulse 65 09/24/17 05:54 Resp 16 09/24/17 08:00 BP 97/56 09/24/17 05:54 Pulse Ox 96 09/24/17 05:54 Intake & Output 09/23/17 09/24/17 09/24/17 18:59 06:59 18:59 Intake Total 600 60 Balance 600 60 Intake: Oral 600 60 Other: Voiding Method Toilet Toilet Toilet # Voids 1 1 1 # Bowel Movements 2 - Constitutional General appearance: Present: cooperative - Respiratory Details: nonlabored - Cardiovascular Rhythm: regular - Gastrointestinal Gastrointestinal Comment(s): s/nt/nd - Psychiatric Psychiatric: Present: A&O x's 3 - Labs CBC & Chem 7: 09/24/17 08:18 09/24/17 08:18 Labs: Abnormal Lab Results - Last 24 Hours (Table) 09/23/17 09/24/17 09/24/17 Range/Units 13:33 01:10 08:18 RBC 4.23 L (4.30-5.90) m/uL Hgb 12.7 L 12.1 L (13.0-17.5) gm/dL Hct 37.9 L 36.1 L (39.0-53.0) % Chloride 109 H (98-107) mmol/L Microbiology - Last 24 Hours (Table) 09/22/17 21:54 Blood Culture - Preliminary Blood No Growth after 24 hours 09/23/17 12:05 Stool Culture - Preliminary Stool Assessment and Plan Assessment: Colitis with lower GI bleed Plan: Tolerating diet, patient may be discharged from surgical standpoint. follow up as outpatient for colonoscopy
--- NOTE | 2017-09-24 21:58 | DS ---
DISCHARGE SUMMARY FINAL DIAGNOSES: 1. Acute colitis, possibly infectious in nature. 2. Acute lower gastrointestinal bleed, stable. 3. Leukocytosis. 4. Hypertension. 5. Hyperlipidemia. 6. History of prostate cancer. DISCHARGE DISPOSITION: Patient will be discharged in stable condition with guarded prognosis. HISTORY OF PRESENT ILLNESS: This 72-year-old gentleman with past medical history admitted with possibly features of colitis and lower gastrointestinal bleed. Seen by gastroenterology and surgery. Recommended outpatient followup. On exam, vital signs stable are stable. Cardiovascular S1, S2. Abdomen soft. Nontender. Central nervous system: No focal deficits. DISCHARGE ADVICE AND MEDICATIONS: 1. Discharge diet is cardiac diet. 2. Activity limited until followup. 3. Follow up with Dr. Fry as advised. 4. Follow up with Dr. Dawn as advised. 5. Follow up with Dr. Hernandez, face and fill packer as advised. MEDICATIONS: Medications are: 1. Tylenol 650 p.o. b.i.d. 2. Norvasc 10 mg p.o. daily. 3. Hold aspirin for now. 4. Lipitor 20 mg q.h.s. 5. Biotin 5 mg. 6. Zyrtec 10 mg. 7. Glucosamine 1 p.o. b.i.d. 8. Magnesium oxide 250 mg daily. 9. Nasonex 2 sprays daily. 10.Multivitamins one p.o. daily. 11.Benicar 40 mg daily. 12.Coenzyme Q 100 mg. 13.Vitamin B complex p.o. daily. 14.Cipro 500 mg p.o. b.i.d. for 4 days. 15.Flagyl 500 mg q.8h for 4 days. 16.Protonix 40 mg p.o. daily. Once again, the patient is being discharged in stable condition with guarded prognosis. MMODL / IJN: [id number] /
== END 2017-09-24 14:08 | disposition home or self-care (01) ==
LOC: EC 16:07 → 4MS4W 21:20 → INTOOBSV 21:20
PROVIDERS: ADMIT Internal Medicine; ATTEND Internal Medicine
DX: K52.9 Noninfective gastroenteritis and colitis, unspecified (principal); K92.2 Gastrointestinal hemorrhage, unspecified; E86.0 Dehydration; D72.829 Elevated white blood cell count, unspecified; I10 Essential (primary) hypertension; A05.9 Bacterial foodborne intoxication, unspecified; E78.5 Hyperlipidemia, unspecified; G47.30 Sleep apnea, unspecified; Z85.46 Personal history of malignant neoplasm of prostate; Z79.899 Other long term (current) drug therapy; Z79.51 Long term (current) use of inhaled steroids; Z79.82 Long term (current) use of aspirin; Z88.8 Allergy status to other drugs, medicaments and biological substances; Z86.010 Personal history of colon polyps
CPT/HCPCS: 99285; 96361 ×7; 96376 ×2; 96365; 96366 ×3; 96367; 96375; 36415; 86900; 86901; 80053; 80048; 80074; 82150; 83605; 83690; 83735; 85025 ×3; 85610; 85730; 86850; 82272; 81003; 87040; 87324; 87045; 87329; 87328; 87046; 74018; 74177; G0378 ×3; J1956 ×2; J2543; C9113 ×2; Q9967

== ENCOUNTER → 2019-12-19 | Outpatient (CLI) | payer MEDICARE | END | disposition home or self-care (01) | LOC: LABWHC1 10:43 | PROVIDERS: ATTEND Internal Medicine | DX: C61 Malignant neoplasm of prostate (principal) | CPT/HCPCS: 36415; 84153 ==

== ENCOUNTER → 2019-12-19 | Outpatient (CLI) | payer MEDICARE ==
[2019-12-19 11:57] LABS: Appearance,Urine Clear (Clear); Bilirubin,Urine Negative (Negative); Blood,Urine Negative (Negative); Color,Urine Light Yellow; Glucose,Urine (UA) Negative (Negative); Ketones,Urine Negative (Negative); Leukocyte Esterase,Urine Negative (Negative); Nitrite,Urine Negative (Negative); PH, Urine 6.5 (5.0-8.0); Protein,Urine Negative (Negative); Specific Gravity,Urine 1.008 (1.001-1.035); Urobilinogen,Urine <2.0 mg/dL (<2.0)
[2019-12-19 11:58] LABS: HCT 38.7 % (39.0-53.0); MCH 29.4 pg (25.0-35.0); MCHC 33.5 g/dL (31.0-37.0); MCV 87.7 fL (80.0-100.0); Mean Platelet Volume 6.5; Platelet Count 239 k/uL (150-450); RBC 4.42 m/uL (4.30-5.90); RDW 13.2 % (11.5-15.5); WBC 4.9 k/uL (3.8-10.6)
[2019-12-19 12:03] LABS: Partial Thromboplastin Time 23.8 sec (22.0-30.0)
[2019-12-19 12:08] LABS: ALT 23 U/L (4-49); AST 34 U/L (17-59); African American GFR (CKD) >90 (>60 ml/min/1.73 sqM); Albumin 4.5 g/dL (3.5-5.0); Alkaline Phosphatase 84 U/L (38-126); Anion Gap 8 mmol/L; Blood Urea Nitrogen 19 mg/dL (9-20); Calcium 9.6 mg/dL (8.4-10.2); Carbon Dioxide 26 mmol/L (22-30); Chloride 106 mmol/L (98-107); Glucose 96 mg/dL (74-99); Non-African American GFR(CKD) 85 (>60 ml/min/1.73 sqM); Potassium 4.3 mmol/L (3.5-5.1); Sodium 140 mmol/L (137-145); Total Bilirubin 1.2 mg/dL (0.2-1.3); Total Protein 7.4 g/dL (6.3-8.2)
== END | disposition home or self-care (01) ==
LOC: LABPAT 10:37
PROVIDERS: ATTEND Orthopaedic Surgery Sports Medicine
DX: Z01.818 Encounter for other preprocedural examination (principal); M17.11 Unilateral primary osteoarthritis, right knee
CPT/HCPCS: 80053; 81003; 85027; 85610; 85730; 87070; 93005

== ENCOUNTER 2020-01-11 05:34 | Day surgery (SDC) | payer MEDICARE ==
[2020-01-08 10:20] VITALS: BMI 27.4
[~2020-01-11 05:34] MED LIST: ACETAMINOPHEN TAB 500 MG TAB PO PRN; GABAPENTIN 300 MG CAP PO PRN; MELOXICAM 7.5 MG TAB PO PRN; ONDANSETRON 4 MG/2 ML VIAL IVP PRN; TRANEXAMIC ACID 1,000 MG in SODIUM CHLORIDE 0.9% 100 ML IVPB PRN
[2020-01-11] MEDS ORDERED: LACTATED RINGERS 1,000 ML IV SCH (05:42)
[2020-01-11] MEDS ORDERED: MIDAZOLAM 2 MG/2 ML VIAL IV PRN (05:42)
[2020-01-11] MEDS ORDERED: DEXAMETHASONE SOD PHOSPHATE 4 MG/ML 1 ML VIAL IV ONE (06:49)
[2020-01-11] MEDS: ROPIVACAINE 246.25 MG, EPINEPHrine 0.5 MG, KETOROLAC 30 MG, cloNIDine HCL/PF 80 MCG, WA... MISCELLANE PRN ×10 (07:05→08:21)
[2020-01-11] MEDS ORDERED: fentaNYL (PF) 50 MCG/ML 2 ML AMP ONE (07:06)
[2020-01-11] MEDS ORDERED: MIDAZOLAM 2 MG/2 ML VIAL ONE (07:06)
[2020-01-11] MEDS ORDERED: TRANEXAMIC ACID 1,000 MG/10 ML VIAL ONE (07:06)
[2020-01-11] MEDS ORDERED: SODIUM CHLORIDE 0.9% 100 ML BAG ONE (07:06)
[2020-01-11] MEDS ORDERED: ceFAZolin 3,000 MG in SODIUM CHLORIDE 0.9% IRRIGATIO 3,000 ML IRRIGATION ONE (07:06)
[2020-01-11] MEDS ORDERED: PROPOFOL 10 MG/ML 20 ML VIAL IV ONE (07:06)
[2020-01-11] MEDS ORDERED: ROPIVACAINE 0.2%-NS ON-Q PUMP 1,090 MG, EMPTY PAIN BALL 1 EACH MISCELLANE PRN (08:57)
[2020-01-11] MEDS ORDERED: HYDROmorphone 0.5 MG/0.5 ML SYRINGE IVP PRN ×2 (09:06)
[2020-01-11] MEDS ORDERED: TEMAZEPAM 15 MG CAP PO PRN (09:06)
[2020-01-11] MEDS ORDERED: ACETAMINOPHEN TAB 325 MG TAB PO PRN (09:06)
[2020-01-11] MEDS ORDERED: HYDROcodone/APAP 10-325MG 1 EACH TAB PO PRN (09:06)
[2020-01-11] MEDS ORDERED: NA PHOS,M-B/NA PHOS,DI-BA 133 ML ENEMA RECTAL PRN (09:06)
[2020-01-11] MEDS ORDERED: MAGNESIUM HYDROXIDE 2,400 MG/10 ML CUP PO PRN (09:06)
[2020-01-11] MEDS ORDERED: traMADol 50 MG TAB PO PRN (09:06)
[2020-01-11] MEDS ORDERED: NALOXONE 0.4 MG/ML 1 ML VIAL IV PRN (09:06)
[2020-01-11] MEDS ORDERED: diazePAM 5 MG TAB PO PRN (09:06)
[2020-01-11] MEDS ORDERED: HYDROmorphone 0.2 MG/1 ML SYRINGE IVP PRN (09:06)
[2020-01-11] MEDS ORDERED: ONDANSETRON 4 MG/2 ML VIAL IVP PRN (09:06)
[2020-01-11] MEDS ORDERED: HYDROcodone/APAP 5-325MG 1 EACH TAB PO PRN (09:06)
[2020-01-11] MEDS ORDERED: bisacodyL 10 MG SUPP RECTAL PRN (09:06)
--- NOTE | 2020-01-11 09:19 | XR ---
Limited right knee HISTORY: Postop 2 views of the right knee Patient is status post right knee arthroplasty. There is anatomic alignment. Lucency is present in th e soft tissues. Atherosclerotic vascular calcifications are present. IMPRESSION: Orthopedic follow-up.
[2020-01-11] MEDS: HYDROmorphone 0.5 MG/0.5 ML SYRINGE IVP PRN ×4 (09:24→11:01)
[2020-01-11] MEDS ORDERED: LACTATED RINGERS 1,000 ML IV ONE ×2 (09:30)
--- NOTE | 2020-01-11 09:47 | OP ---
OPERATIVE REPORT DATE OF PROCEDURE: 01/11/2020 SURGEON: Abhi Ayoub MD [employer] ANALYST: Monroe ALMANZA. PREOPERATIVE DIAGNOSIS: Right knee osteoarthrosis. POSTOPERATIVE DIAGNOSIS: Right knee osteoarthrosis. OPERATION: Right total knee arthroplasty. ANESTHESIA: Spinal with sedation. ESTIMATED BLOOD LOSS: 100 mL. TOURNIQUET: Tourniquet time was 48 minutes at 250 mmHg. COMPLICATIONS: None apparent. DRAINS: None. DISPOSITION: Postanesthesia care unit. INDICATIONS: Ed is a 74-year-old male with longstanding history of right knee pain. History and physical examination are consistent with advanced right knee osteoarthrosis. He has been through significant nonoperative management up to this point. Further treatment options were discussed and he has decided to go for the right total knee arthroplasty. The risks of procedure were discussed with him in detail. These risks include, but are not limited to risk of infection, nerve damage, bleeding, pain, and a small risk of deep vein thrombosis which could lead to fatal pulmonary embolism. There is also risk of loosening of the implant which could require revision operation. The patient understands these risks. All of his questions were answered to his satisfaction. An appropriate informed consent was obtained. DESCRIPTION OF PROCEDURE: The patient identified in preoperative holding area. Surgical site was marked by both the patient and myself. He was given 2 g of Ancef IV for prophylactic purposes. He was then transferred to the operative suite. He was placed supine on the operative table. Spinal anesthetic was then administered and dosed per the Anesthesia Department without apparent complication. Examination under anesthesia was then performed. The patient was 2-3 degrees shy of full extension. He had 100 degrees of flexion. The medial collateral ligament, lateral collateral ligament, posterior cruciate ligaments were stable. Tourniquet was then placed high on the right upper thigh, well-padded in preparation for surgery. The patient's right lower extremity was than prepped and draped in usual sterile fashion. Standard surgical pause undertaken to ensure that we were operating on the correct site and that appropriate preoperative antibiotics were given. All staff were in agreement, we proceeded. The outlines of the patella marked with surgical pen. A planned 12 cm vertical incision centered over the patella was marked with surgical pen. Leg was then exsanguinated with an Esmarch dressing. The knee was then flexed and the tourniquet was inflated to 250 mmHg. The total tourniquet time for the procedure was 48 minutes. Incision was then made with 10 blade scalpel. Dissection was carried down sharply overlying fascia. Great care was taken to minimize the skin flaps. The knee was then exposed using a standard medial parapatellar approach. A small cuff of quadriceps tendon was then left for suturing. He was in a bit of varus preoperatively. A standard medial release was then made. The superficial medial collateral ligament was dissected off the bone around the posterior aspect of the proximal tibia. The medial meniscus was then excised as well. The lateral meniscus was also released anteriorly. The leg was then externally rotated. The patella was everted. The knee was flexed, the retractor was then placed to protect the collateral ligaments. I then proceeded to remove the infrapatellar fat pad. This was excised sharply tangentially with fibers of the patellar tendon. I then proceeded to remove the peripheral osteophytes. This was done with a rongeur. I then proceed with the distal femoral resection. He did have near full extension. A planned 9 mm resection was then done. The femoral canal was then entered in the midline of the femur approximately 10 mm anterior to the origin of the posterior cruciate ligament. The octavio was then advanced on the center of the femur and placed intramedullary. Based on the preoperative radiographs, the angle between the anatomic and mechanical axis of the femur was approximately 4-5 degrees. The valgus angle with the femoral cutting guide was then set at 4 degrees for the right knee. The distal femoral cutting guide was then advanced over the intramedullary octavio. This was seated firmly against the femur. I then as mentioned planned to take 9 mm off the distal femur. The cutting blocks then secured onto the femur with pins. The jig was removed. The distal femoral cut was made through the slot of the block. The pins were then removed. The distal femoral cutting block was removed. The accuracy of this femoral cuts was checked with 2 flat bars. I then proceeded with femoral sizing. Posterior referencing sizing guide was held firmly against the resected distal surface of the femur. The posterior condyles were resting on the posterior plane of the guide. The sizing stylus was then placed onto the anterior femur. The size was measured as a size 10. I then assessed for femoral rotation. Plan was for 3 degrees external rotation. Three degrees of external rotation was placed onto the jig. These holes were then marked. I then confirmed the rotation by 3 separate methods. This done using the epicondylar axis as well as Whitesides line and posterior referencing. It was deemed that the external rotation was proper. I then went forward placing the femoral cutting block. This was placed over the previously placed pin holes. The Yinka wing was then placed on the anterior slots to ensure that we would not notch the anterior femur with the anterior femoral cut. I then proceeded with the anterior femoral cut. This was flush with the anterior cortex of the femur. The posterior cuts were then made followed by the anterior chamfer cut, then the posterior chamfer cut. The cutting block was then removed. Throughout the resection, the collateral ligaments were protected with retractors. I then placed a trial size 10 femur. It fit very nice medial-lateral and fit flush with the distal end of the femur. The drill holes were then made. I then proceeded with the tibial cut. I planned for cruciate retaining knee. The guide was placed and set for varus valgus and for slope. The height was set for approximate 2 mm resection from the medial tibial plateau which was the lower side. Happy with the alignment and amount of resection. The cutting block was then pinned to the proximal tibia. The alignment octavio was removed. The proximal tibia was resected with a reciprocating saw. Again this was done with retractors protecting the collateral ligaments as well as the posterior cruciate ligament. I then proceeded to evaluate the flexion and extension gaps. A 10 mm block was then placed. The flexion-extension gaps were equal. I then proceeded to resection of posterior osteophytes. Very minimal posterior osteophytes. This is done using a curved osteotome. This resected the posterior osteophytes and posterior capsule stripping was done off the posterior aspect of the femur. The osteophytes were then removed. I then proceeded with resection of the patella. The thickness of patella was measured using the caliper. The thickness was 22 mm. The thickness of the anticipated patellar dome was taken into account. Resection was then performed and confirmed to be equal in 4 quadrants using a caliper. Approximately 14 mm of bone remained after resection. A 32 x 8.5 standard patellar trial was then placed. The holes drilled. The trial was then placed. I then proceeded with sizing the tibial plate. A size F tibial plate fit very nicely. I then placed the trial femur the tibial tray and patellar button. A 10 mm trial insert was also placed. The components fit very nicely. He had full extension and flexion. The extension flexion gaps were equal and stable to both varus and valgus stress. The patella tracked appropriately. The tibial tray rotation was then marked with a Bovie. This was externally rotated properly. I then proceed with tibial preparation for. First drilled the femoral holes removed femoral component. The tibial tray was then set for proper external rotation as well as mediolateral placement onto the tibia. It was then pinned into place. I then proceeded with punching the keel. I then decided to proceed with cementing of all of our components. The knee was thoroughly irrigated with sterile saline solution via pulse lavage. The lateral geniculate artery was identified and cauterized. All blood was removed from the bone of the tibia femur and patella with pulse lavage. I then proceed with cementing. Two packs of antibiotic bone cement prepared on the back table by the surgical instruments inspector. I then proceeded with cementing the tibia first. Cement was impacted into the keel as well as deeply seated into the bone. A second coat of cement was then placed. The tibia was then impacted into place. Excess cement was removed with Emeka's and Joker's. I then proceeded with cementing of the femoral component. The femoral component was also cemented using standard technique. Excess cement was removed. A 10 mm trial insert was then placed into the knee. It was brought into full extension with a constant axial load placed until the cement had hardened. The patellar component was then cemented. This was held firmly with a compressive device until the cement had dried. When the cement had dried, the knee was taken out of extension. All excess cement was removed from around the prosthesis. I then trialed the knee with a 10 mm insert. Flexion and extension gaps were appropriate. The knee was stable, it came into full extension. I decided to go forward with a 10 mm cross-linked cruciate-retaining tibial insert. Polyethylene was then placed on the tibial tray and locked into place. The knee was then reduced. The knee was again further irrigated with sterile saline solution with antibiotic added. The tourniquet was then deflated. The total tourniquet time for the procedure was 48 minutes at 250 mmHg. Final components were Jayne Persona size 10, cruciate-retaining femoral component size F, tibial tray a 10 mm medial congruent cruciate-retaining polyethylene insert and a 32 x 8.5 mm patella. I then proceeded with closure. Again the knee was thoroughly irrigated. The quadriceps tendon and the medial retinaculum were reapproximated with #2 Ethibond suture. The extensor mechanism was then closed with a running #2 Quill suture. Subcutaneous tissues were closed with 2-0 Vicryl interrupted suture. The skin was closed with a running 3-0 Quill suture. Dermabond was applied to the incision. Sterile compressive dressings were applied. All sponge and needle counts were deemed correct prior to closure. The patient tolerated procedure without apparent complication. He was transferred to recovery room in stable conditions. MMODL / IJN: [id number] /
--- NOTE | 2020-01-11 12:29 | P.ANPRN ---
Procedure Note - Anesthesia - Nerve Block Performed Right Adductor Canal Infusion Time Out Performed: Yes Date of Procedure: 01/11/20 Procedure Start Time: 06:30 Procedure Stop Time: 06:42 Location of Patient: PreOp Indication: Acute Post-Operative Pain, Requested by Surgeon Sedation Type: Sedate with meaningful contact maintained Preparation: Sterile Prep, Sterile Dressing Position: Supine Catheter: Indwelling Needle Types: Pajunk Needle Gauge: 21 Ultrasound used to visualize needle placement: Yes Ultrasound used to observe medication spread: Yes Blood Aspirated: No Pain Paresthesia on Injection Noted: No Image Stored and Saved: Yes Events: Uneventful and Well Tolerated (ropi .5% 20 cc plus dexamethasone 4mg)
[2020-01-11] MEDS: LACTATED RINGERS 1,000 ML IV SCH ×2 (19:40→20:24)
[2020-01-11] MEDS: ASPIRIN 81 MG PO SCH (20:21)
[2020-01-11] MEDS ORDERED: ATORVASTATIN 20 MG TAB PO SCH (21:00)
[2020-01-11] MEDS ORDERED: SENNOSIDES-DOCUSATE SODIUM 1 EACH TAB PO SCH (21:00)
[2020-01-11] MEDS ORDERED: FLUTICASONE 50MCG/SPRAY NASAL 16GM EA NOSTRIL SCH (21:00)
[2020-01-12] MEDS: LACTATED RINGERS 1,000 ML IV SCH (05:47)
--- NOTE | 2020-01-12 06:44 | P.PN ---
Progress Note - Text Progress Note Date: 01/12/20 Patient was seen at bedside at 5:30 AM. Patient is postop day 1 from left to adilene knee replacement with adductor canal catheter placed for pain . Ropivacaine 0.2% infusion running at 8 ml per hour. VAS score is 4/10. Patient denies side effects. Lower extremity sensation and motor function is intact. Patient has ambulated. Dressing clean dry and intact over catheter site
[2020-01-12 08:32] VITALS: BP 121/66; PULSE 71; RESP 18; TEMP 98.4
[2020-01-12 08:44] LABS: Basophils % (A) 0 %; Eosinophils # (A) 0.1 k/uL (0-0.7); Eosinophils % (A) 0 %; HGB 12.5 gm/dL (13.0-17.5); Lymphocytes # (A) 0.9 k/uL (1.0-4.8); Lymphocytes % (A) 8 %; MCH 28.4 pg (25.0-35.0); MCHC 32.8 g/dL (31.0-37.0); MCV 86.5 fL (80.0-100.0); Mean Platelet Volume 6.8; Monocytes # (A) 0.7 k/uL (0-1.0); Monocytes % (A) 6 %; Neutrophils # (A) 9.2 k/uL (1.3-7.7); Neutrophils % (A) 85 %; Platelet Count 277 k/uL (150-450); RBC 4.39 m/uL (4.30-5.90); RDW 13.2 % (11.5-15.5); WBC 10.9 k/uL (3.8-10.6)
[2020-01-12] MEDS ORDERED: amLODIPine 10 MG TAB PO SCH (09:00)
[2020-01-12] MEDS ORDERED: NON FORMULARY DRUG (Cetirizine Hcl [Zyrtec] 10 MG Tablet) PO SCH (09:00)
[2020-01-12] MEDS ORDERED: MAGNESIUM OXIDE 400 MG TAB PO SCH (09:00)
[2020-01-12] MEDS: ASPIRIN 81 MG PO SCH (09:52)
[2020-01-12] MEDS ORDERED: MULTIVITAMINS, THERA 1 EACH TAB PO SCH (12:00)
--- NOTE | 2020-01-12 16:15 | P.DS ---
Providers Expected date of discharge: 01/12/20 Attending physician: Abhi Ayoub Consults: 01/11/20 09:06 Consult Physician Routine Consulting Provider: Annalise Hawthorne Consult Reason/Comments: post op medical management Do you want consulting provider notified?: Yes Primary care physician: Jigna Dawn - Discharge Diagnosis(es) (1) Osteoarthritis of right knee Patient was admitted to the OR on 01/11/2020 to undergo a right total knee arthroplasty. He had failed conservative measures as an outpatient and desired to proceed with elective surgery after given informed consent. He underwent the above procedure which he tolerated well without complication. Postoperative hospital course has remained without complication. On day of discharge he is afebrile, vital signs stable, labs within acceptable ranges, tolerating by mouth meds and diet, voiding without difficulty, positive flatus, denies abdominal pain or calf pain, pain is controlled on oral pain medication and has no new complaints. Wound is benign, neurovascular status is intact, calf is soft and nontender, abdomen soft and nontender. Review of systems is negative for numbness, tingling, fever, chills, chest pain, shortness of breath, nausea, vomiting, dizziness, headaches, slurred speech or other. Status: Acute Procedures: Right TKA Patient Condition at Discharge: Good Plan - Discharge Summary Discharge Rx Participant: Yes New Discharge Prescriptions: New Aspirin [Adult Low Dose Aspirin EC] 81 mg PO BID #60 tablet. Docusate [Colace] 100 mg PO BID #60 capsule HYDROcodone/APAP 7.5-325MG [[place] 7.5-325] 1 - 2 each PO Q6HR PRN #42 tab PRN Reason: Pain No Action Atorvastatin [Lipitor] 20 mg PO HS amLODIPine [Norvasc] 10 mg PO DAILY Vitamin B Complex 1 cap PO DAILY Ubidecarenone [Co Q-10] 100 mg PO DAILY Multivitamin [Men's Multi-Vitamin] 1 tab PO DAILY Aspirin 81 mg PO DAILY Acetaminophen [Tylenol 8 Hour] 650 mg PO BID Cetirizine HCl [Zyrtec] 10 mg PO DAILY Magnesium Oxide [Mag-Ox] 250 mg PO DAILY Triamcinolone Acetonide [Nasacort] 2 spray EA NOSTRIL HS Serena-3 Fatty Acids/Fish Oil [Fish Oil 1,000 mg Softgel] 1 each PO DAILY Losartan Potassium [Cozaar] 100 mg PO DAILY Ibuprofen [Motrin] 600 mg PO Q8HR PRN PRN Reason: Pain Discharge Medication List Atorvastatin [Lipitor] 20 mg PO HS 08/30/14 [History] Multivitamin [Men's Multi-Vitamin] 1 tab PO DAILY 08/30/14 [History] Ubidecarenone [Co Q-10] 100 mg PO DAILY 08/30/14 [History] Vitamin B Complex 1 cap PO DAILY 08/30/14 [History] amLODIPine [Norvasc] 10 mg PO DAILY 08/30/14 [History] Aspirin 81 mg PO DAILY 02/07/15 [History] Acetaminophen [Tylenol 8 Hour] 650 mg PO BID 09/22/17 [History] Cetirizine HCl [Zyrtec] 10 mg PO DAILY 09/22/17 [History] Magnesium Oxide [Mag-Ox] 250 mg PO DAILY 09/22/17 [History] Ibuprofen [Motrin] 600 mg PO Q8HR PRN 01/08/20 [History] Losartan Potassium [Cozaar] 100 mg PO DAILY 01/08/20 [History] Serena-3 Fatty Acids/Fish Oil [Fish Oil 1,000 mg Softgel] 1 each PO DAILY 01/08/20 [History] Triamcinolone Acetonide [Nasacort] 2 spray EA NOSTRIL HS 01/08/20 [History] Aspirin [Adult Low Dose Aspirin EC] 81 mg PO BID #60 tablet.dr 01/12/20 [Rx] Docusate [Colace] 100 mg PO BID #60 capsule 01/12/20 [Rx] HYDROcodone/APAP 7.5-325MG [[place] 7.5-325] 1 - 2 each PO Q6HR PRN #42 tab 01/12/20 [Rx] Follow up Appointment(s)/Referral(s): [facility] [NON-STAFF] - (Please contact [facility] with questions regarding your new walker. ) [facility], [NON-STAFF] - Jigna Dawn MD [Primary Care Provider] - 1 Week (Office closed Fridays. Please call office Wednesday for your follow-up appointment. Thank you.) Abhi Ayoub MD [STAFF PHYSICIAN] - 01/22/20 1:35 pm Patient Instructions/Handouts: *Surgery [facility] - On-Q Pain Pump Discharge Instructions, Joint Replacement Surgery (DC) Activity/Diet/Wound Care/Special Instructions: Keep wound clean and dry Take meds as directed Follow-up with Dr. Ayoub in office Weight bear as tolerated May shower in 3 days if no bleeding Discharge Disposition: HOME WITH HOME HEALTH SERVICES
== END 2020-01-12 14:34 | disposition home health service (06) ==
LOC: OR 05:34 → 4SSUR 08:49 → OR 01-12 14:34
PROVIDERS: ATTEND Orthopaedic Surgery Sports Medicine
DX: M17.11 Unilateral primary osteoarthritis, right knee (principal); M25.761 Osteophyte, right knee; I10 Essential (primary) hypertension; G47.33 Obstructive sleep apnea (adult) (pediatric); E78.5 Hyperlipidemia, unspecified; J30.2 Other seasonal allergic rhinitis; Z88.8 Allergy status to other drugs, medicaments and biological substances; Z85.46 Personal history of malignant neoplasm of prostate; Z79.82 Long term (current) use of aspirin; Z79.899 Other long term (current) drug therapy; Z90.79 Acquired absence of other genital organ(s); Z98.890 Other specified postprocedural states; Z98.41 Cataract extraction status, right eye; Z98.42 Cataract extraction status, left eye
CPT/HCPCS: 97110; 97161; 64448; 76942; 88305; 85025; 88311; 73560; 27447; C1776; C1713; J2250; J0171; J1100; J0690 ×2; J2405; J3010; J1885; J2795 ×2; J2704; J0735; J1170

== ENCOUNTER → 2020-10-07 | Outpatient (CLI) | payer OTHER ==
--- NOTE | 2020-10-07 17:37 | ECHOF ---
Referral Reason:Cardiac murmur R01.1 MEASUREMENTS -------- HEIGHT: 182.9 cm WEIGHT: 97.1 kg BP: IVSd: 1.1 cm (0.6 - 1.1) LVIDd: 4.8 cm (3.9 - 5.3) LVPWd: 1.3 cm (0.6 - 1.1) EDV(Teich): 108 ml IVSs: 1.9 cm LVIDs: 3.4 cm LVPWs: 1.4 cm %IVS Thck: 75 % ESV(Teich): 46 ml EF(Teich): 58 % %FS: 30 % SV(Teich): 62 ml RVIDd: 3.3 cm (< 3.3) LALs A4C: 5.6 cm LAAs A4C: 22.7 cm LAESV A-L A4C: 78 ml LAESV MOD A4C: 65 ml LALs A2C: 5.9 cm LAAs A2C: 25.5 cm LAESV A-L A2C: 94 ml LAESV MOD A2C: 91 ml LAESV(A-L): 88 ml LAESV Index (A-L): 40.40 ml/m Ao Diam: 4.0 cm (2.0 - 3.7) LA Diam: 3.5 cm (2.7 - 3.8) AV Cusp: 1.6 cm (1.5 - 2.6) EPSS: 0.8 cm MV E Oh: 0.69 m/s MV DecT: 292 ms MV Dec Pierce: 2.4 m/s MV A Oh: 0.75 m/s MV E/A Ratio: 0.91 MV PHT: 85 ms LVOT Vmax: 1.20 m/s LVOT maxP.72 mmHg AV Vmax: 2.20 m/s AV maxP.38 mmHg AV Vmax: 2.21 m/s AV Vmean: 1.50 m/s AV maxP.60 mmHg AV meanP.01 mmHg AV Env.Ti: 263 ms AV VTI: 39.2 cm TR Vmax: 2.82 m/s TR maxP.89 mmHg RAP: 5.00 mmHg RVSP: 36.89 mmHg MV EF SLOPE: 45.11 mm/s (70 - 150) MV EXCURSION: 12.65 mm (> 18.000) FINDINGS -------- Sinus rhythm. This was a technically adequate study. The left ventricular size is normal. There is mild concentric left ventricular hypertrophy. Overa ll left ventricular systolic function is normal with, an EF between 55 - 60 %. The diastolic fillin g pattern is normal for the age of the patient 6.58. The right ventricle is mildly enlarged. LA is moderately dilated 34-39 ml/m2 The right atrial size is normal. Mobile interatrial septum. There is no evidence of aortic regurgitation. There is mild aortic stenosis present. Peak/mean gr adient across the Aortic Valve is 19.60mmHg / 10.01mmHg. Mild mitral regurgitation is present. Mild tricuspid regurgitation present. There is mild pulmonary hypertension. The right ventricular systolic pressure, as measured by Doppler, is 36.89mmHg. Trace/mild (physiologic) pulmonic regurgitation. The aortic root size is normal. Normal inferior vena cava with normal inspiratory collapse consistent with estimated right atrial pre ssure of 5 mmHg. There is no pericardial effusion. CONCLUSIONS -------- 1. The left ventricular size is normal. 2. There is mild concentric left ventricular hypertrophy. 3. Overall left ventricular systolic function is normal with, an EF between 55 - 60 %. 4. The diastolic filling pattern is normal for the age of the patient 6.58 5. The right ventricle is mildly enlarged. 6. LA is moderately dilated 34-39 ml/m2 7. Mobile interatrial septum. 8. There is mild aortic stenosis present. 9. Peak/mean gradient across the Aortic Valve is 19.60mmHg / 10.01mmHg. 10. Mild mitral regurgitation is present. 11. Mild tricuspid regurgitation present. 12. There is mild pulmonary hypertension. 13. The right ventricular systolic pressure, as measured by Doppler, is 36.89mmHg. 14. Trace/mild (physiologic) pulmonic regurgitation. FIRE EXTINGUISHER REPAIRER: Jess Moody RDCS
== END | disposition home or self-care (01) ==
LOC: RADECHMAIN 14:38
DX: I08.8 Other rheumatic multiple valve diseases (principal); I27.20 Pulmonary hypertension, unspecified
CPT/HCPCS: 93306

== ENCOUNTER → 2024-06-01 | Outpatient (CLI) | payer MEDICARE, OTHER ==
--- NOTE | 2024-06-01 14:22 | XR ---
EXAMINATION TYPE: XR chest 2V DATE OF EXAM: 06/01/2024 2:09 PM COMPARISON: None. CLINICAL INDICATION: Male, 78 years old with history of R059 COUGH, TECHNIQUE: XR chest 2V view(s) obtained. FINDINGS: The heart size is normal. The pulmonary vasculature is normal. The lungs are clear. IMPRESSION: 1. No acute pulmonary process. [facility], , 06/01/2024 2:20 PM
== END | disposition home or self-care (01) ==
LOC: RADXRYALE 13:54
PROVIDERS: ATTEND Internal Medicine
DX: R05.9 Cough, unspecified (principal)
CPT/HCPCS: 71046